=== PATIENT | female | born 1975 | race African-American/Black ===

== ENCOUNTER 2024-10-24 10:13 | Emergency (ER) | payer MEDICAID, SELFPAY ==
[2024-10-24 10:14] VITALS: BMI 29.9
--- NOTE | 2024-10-24 10:17 | EKG_ITS ---
[facility] Test Date: 2024-10-24 Pat Name: SELWYN PRATT Department: Room: - Gender: Female [employer]: : 1975 Requested By: ED Temporary Provider Order Number: [id number] Reading MD: ED Temporary Provider Measurements Intervals [place] Rate: 73 P: 64 MT: 161 QRS: 39 QRSD: 98 T: 41 QT: 382 QTc: 424 Interpretive Statements SINUS RHYTHM POSSIBLE LEFT ATRIAL ENLARGEMENT [-0.1mV P WAVE IN V1/V2] SEPTAL MYOCARDIAL INFARCTION , PROBABLY RECENT [40+ ms Q WAVE IN V1/V2] ACUTE SC Compared to ECG 04/20/2023 15:59:29 Myocardial infarct finding now present Sinus bradycardia no longer present Intraventricular conduction delay no longer present /store/S0/[id number].pdf
--- NOTE | 2024-10-24 10:43 | XR_ITS ---
Examination: PA lateral chest 2 views TECHNIQUE: Upright PA lateral chest 2 views Exam date and time: October 24, 2024 1052 hours Comparison October 19, 2021 INDICATIONS: Chest pain today. FINDINGS: Normal heart size Lungs are clear. The osseous structures are intact IMPRESSION: No active disease
--- NOTE | 2024-10-24 10:44 | PD.EDRME ---
Rapid Medical Screening Exam RME Arrival date/time: 10/24/24 10:13 49-year-old female with history of type 2 diabetes and cardiac stent presents emergency department today stating that she felt lightheaded with left arm pain today Chief Complaint: Chest Pain
[2024-10-24 10:53] VITALS: BP 104/71; PULSE 78; RESP 20; TEMP 36.4; O2SAT 100
[2024-10-24 11:25] LABS: Basophils # (Auto) 0.1 Thou/mm3 (0.0-0.2); Basophils % (Auto) 1 % (0-2.5); Eosinophils # (Auto) 0.3 Thou/mm3 (0.0-0.5); Eosinophils % (Auto) 4 % (0-10); Hematocrit 41.6 % (36.0-46.0); Hemoglobin 13.5 g/dL (12.0-16.0); Immature Granulocytes % (Auto) 0 % (0-0); Immature Granulocytes Auto 0.01 Thou/mm3 (0.00-0.00); Lymphocytes # (Auto) 3.5 Thou/mm3 (1.0-4.8); Lymphocytes % (Auto) 47 % (10-50); Mean Corpuscular HGB Conc 32.5 g/dl (31.0-37.0); Mean Corpuscular Hemoglobin 26.8 pg (25.0-35.0); Mean Corpuscular Volume 83 fL (80-100); Monocytes # (Auto) 0.5 Thou/mm3 (0.0-0.8); Monocytes % (Auto) 7 % (0-12); Neutrophils # (Auto) 3.1 Thou/mm3 (1.8-7.7); Neutrophils % (Auto) 42 % (37-80); Nucleated Red Blood Cell % 0 /100 WBC (0); Platelet Count 252 Thou/mm3 (140-440); RDW Standard Deviation 39.8 fL (36.4-46.3); Red Blood Count 5.03 Miln/mm3 (4.00-5.20); White Blood Count 7.4 Thou/mm3 (3.6-11.0)
[2024-10-24 11:34] LABS: Collection Type, Urine Clean Catch
[2024-10-24 11:46] LABS: B-Type Natriuretic Peptide < 20 pg/mL (0-100)
[2024-10-24 11:47] LABS: Bilirubin,Urine Negative (Negative); Blood,Urine Negative (Negative); Clarity,Urine Clear (Clear/Hazy); Color,Urine Yellow (Lt Yel-Yel); Glucose, Urine Negative (Negative); Ketones,Urine Negative (Negative); Leukocyte Esterase,Urine Negative (Negative); Nitrite,Urine Negative (Negative); Protein,Urine Negative (Neg - Trace); RBC,Urine 2 /hpf (0-3); Squamous Epithelial Cell,Urine 1 /hpf (0-5); Urobilinogen,Urine Negative mg/dL (0.0-1.0); WBC,Urine 1 /hpf (0-5)
[2024-10-24 11:49] LABS: Alanine Aminotransferase 12 U/L (10-49); Albumin, Serum 4.8 gm/dL (3.5-5.0); Albumin/Globulin Ratio 2.2 (1.2-2.2); Alkaline Phosphatase 103 U/L (46-116); Anion Gap 6 (7-16); Aspartate Amino Transferase 13 U/L (0-34); BUN/Creatinine Ratio 25 Ratio (12-20); Bilirubin,Total 0.5 mg/dL (0.3-1.2); Blood Urea Nitrogen 15 mg/dL (9-23); Calcium 9.7 mg/dL (8.3-10.6); Calcium (Corrected) 9.7 mg/dL (8.5-10.1); Carbon Dioxide 28.9 mMol/L (20.0-31.0); Chloride 106 mMol/L (98-107); Creatinine (Component) 0.6 mg/dL (0.6-1.3); Estimated Creatinine Clearance 117.1 mL/min (>60); Globulin 2.2 gm/dL (2.3-3.5); Glucose 91 mg/dL (74-106); Osmolality,Calculated 282 (275-295); Sodium 141 mMol/L (136-145); Troponin I < 0.020 ng/mL (0.0-0.045); eGFR > 60 See Note
[2024-10-24 11:50] LABS: Partial Thromboplastin Time 28.3 Seconds (22.0-36.0); Prothrombin Time 10.8 Seconds (9.0-12.2)
[2024-10-24 11:52] LABS: HCG Qualitative,Urine Negative
[2024-10-24 11:56] LABS: Alcohol, Urine Negative (Negative); Amphetamine/Methamp Scrn,U Positive (Negative); Barbiturate Screen,Urine Negative (Negative); Benzodiazepines Screen,Urine Negative (Negative); Benzoylecgonine Screen, Ur Negative (Negative); Fentanyl Screen,Urine Negative (Negative); Opiate Screen,Urine Negative (Negative); THC Screen,Urine Positive (Negative)
--- NOTE | 2024-10-24 17:49 | PC.NURSE ---
Patient called from the lobby by the hr specialist at 1703, NAx1.
--- NOTE | 2024-10-24 17:49 | PC.NURSE ---
Patient called from the lobby by the kindergartners helper for a second time at 1718, NAx2.
== END 2024-10-24 18:34 | disposition left against medical advice (07) ==
LOC: SERX 11:03
PROVIDERS: Nurse Practitioner Primary Care; Emergency Provider Emergency Medicine; PCP Family Medicine
DX: R42 Dizziness and giddiness (principal); M79.602 Pain in left arm; E11.9 Type 2 diabetes mellitus without complications
CPT/HCPCS: 36415; 71046; 80053; 80307; 80320; 81001; 81025; 83735; 83880; 84484; 85025; 85610; 85730; 93005; 99281; G0480

== ENCOUNTER → 2025-01-18 | Outpatient (CLI) | payer MEDICAID, SELFPAY ==
--- NOTE | 2025-01-18 14:45 | XR_ITS ---
Examination: Breast ultrasound, unilateral, left complete Date and time of exam: January 18, 2025 1501 hrs. Indications: Left breast pain beginning 2 weeks ago, family history, mother, breast cancer Technique: Real-time felton scale ultrasonographic imaging performed left breast including all 4 quadrants as well as nipple retroareolar and axillary region. Findings: No cystic or solid mass Impression: BI-RADS Category 0: Incomplete: Additional imaging evaluation Given the patient's presentation, recommend diagnostic mammography follow-up
--- NOTE | 2025-01-18 15:15 | XR_ITS ---
Examination: Diagnostic digital mammography, bilateral Computer aided detection 3-D breast Tomosynthesis, bilateral Date and time of exam: 01/18/2025, 3:12 PM Comparisons: 08/16/2020 Indications:Left breast pain Technique: Nonmagnified MLO, CC views of the breasts to been obtained, reconstructed from 3-D Tomosynthesis images. R2 computer aided detection program utilized for evaluation of suspicious masses and/or abnormal calcifications. 3-D Tomosynthesis images obtained. Findings: There are scattered areas of fibroglandular density. No evidence of abnormal masses or suspicious calcifications. Impression: BI-RADS category 1: Negative findings (within normal) Recommend 1 year follow-up mammogram
== END | disposition home or self-care (01) ==
DX: R92.313 Mammographic fatty tissue density, bilateral breasts (principal); R92.8 Other abnormal and inconclusive findings on diagnostic imaging of breast
CPT/HCPCS: 76641; 77062; 77066; G0279

== ENCOUNTER 2025-04-29 14:27 | Emergency (ER) | payer MEDICAID, SELFPAY ==
[2025-04-29 14:28] VITALS: BMI 29.6
[2025-04-29 14:38] VITALS: BP 105/60; PULSE 101; RESP 20; TEMP 36.9; O2SAT 96
--- NOTE | 2025-04-29 15:23 | EKG_ITS ---
[facility] Test Date: 2025-04-29 Pat Name: SELWYN PRATT Department: Room: - Gender: Female [employer]: : 1975 Requested By: Pineda Marks Order Number: [id number] Reading MD: Pineda Marks Measurements Intervals [place] Rate: 90 P: 55 WI: 147 QRS: 45 QRSD: 105 T: 46 QT: 351 QTc: 431 Interpretive Statements SINUS RHYTHM NONSPECIFIC T-WAVE ABNORMALITY Compared to ECG 10/24/2024 10:43:53 T-wave abnormality now present Supraventricular rhythm no longer present /store/S0/[id number]/ecg/[id number].pdf
--- NOTE | 2025-04-29 15:23 | XR_ITS ---
Examination: PA lateral chest 2 views Technique: Upright PA lateral chest 2 views Date and time: April 29, 2025, 1529 hrs. Indications: Onset chest pain today. Findings: Normal heart size. Lungs are clear. Osseous structures are intact. Impression: No active disease.
--- NOTE | 2025-04-29 15:24 | EDNOTE_ITS ---
ED Chest Pain RME/HPI General Chief Complaint: General Adult/Misc Complain Stated Complaint: MAJOR BURNING SENSATION DOWN R) LEG, DIZZINESS Time Seen by Provider: 04/29/25 15:17 Source: patient Arrival date/time: 04/29/25 14:27 49-year-old female with a history of type 2 diabetes presents to the emergency room with a chief complaint of a burning sensation down her right leg, dizziness, chest tightness x 2 days Mode of arrival: ambulatory Limitations: no limitations Related Data Home Medications ?Medication ?Instructions ?Recorded ?Confirmed metformin 500 mg tablet 500 mg PO DAILY 04/20/2309/02 Previous Rx's ?Medication ?Instructions ?Recorded meloxicam 7.5 mg tablet 7.5 mg PO QDAY #10 tabs 04/10 11/02 ondansetron 4 mg disintegrating 4 mg PO Q8H #14 tabs 0 04/20/23 tablet Allergies Allergy/AdvReac Type Severity Reaction Status Date / Time celecoxib Allergy Severe Rash Verified 04/29/25 14:31 Review of Systems Review of Systems Systems Reviewed: All systems reviewed, normal except as documented Constitutional Constitutional: Reports system reviewed and no additional complaints, except as documented, Denies fatigue, Denies fever(s), Denies headache(s) and Denies weakness Eyes Eyes: Reports system reviewed and no additional complaints, except as documented, Denies blurry vision and Denies change in vision ENT Ears, Nose, Mouth, and Throat: Reports system reviewed and no additional complaints, except as documented, Denies otalgia, Denies headache(s), Denies nasal congestion, Denies throat swelling and Denies vertigo Cardiovascular Cardiovascular: Reports system reviewed and no additional complaints, except as documented, Reports chest pain, Denies dyspnea and Denies dyspnea on exertion Respiratory Respiratory: Reports system reviewed and no additional complaints, except as documented, Denies chest congestion, Denies cough, Denies dyspnea, Denies dyspnea on exertion and Denies wheezing Gastrointestinal Gastrointestinal: Reports system reviewed and no additional complaints, except as documented, Denies abdominal pain, Denies cramping, Denies nausea and Denies vomiting Genitourinary Genitourinary: Reports system reviewed and no additional complaints, except as documented Musculoskeletal Musculoskeletal: Reports system reviewed and no additional complaints, except as documented and Reports back pain Integumentary/Breasts Skin/Breast: Reports system reviewed and no additional complaints, except as documented and Denies wounds Neurologic Neurologic: Reports system reviewed and no additional complaints, except as documented, Denies confusion, Denies headache(s), Denies lack of coordination, Denies vertigo and Denies weakness Psychiatric Psychiatric: Reports system reviewed and no additional complaints, except as documented, Denies anxiety, Denies confusion, Denies depression, Denies paranoia, Denies suicidal ideation and Denies tactile hallucinations Endocrine Endocrine: Reports system reviewed and no additional complaints, except as documented and Denies fatigue Hematologic/Lymphatic Hematologic/Lymphatic: Reports system reviewed and no additional complaints, except as documented and Denies lymphadenopathy Allergic/Immunologic Allergic/Immunologic: Reports system reviewed and no additional complaints, except as documented, Denies throat swelling, Denies urticaria and Denies wheezing Past Medical History Past Medical History CARDIAC: Positive Myocardial Infarction (stent), Hypercholesterolemia and Hypertension; Negative Congestive Heart Failure RESPIRATORY: Negative Chronic Obstructive Pulmonary Disease (COPD) GENITOURINARY: Negative Renal Disease MUSCULOSKELETAL: Positive Degenerative Disk Disease ENDOCRINE: Positive Diabetes Mellitus Type 2; Negative Diabetes Mellitus Type 1 PSYCHO/SOCIAL: Positive Bipolar Disorder and Anxiety Surgical History SURGICAL: Positive Coronary Stent, Cardiac Catheterization and Hysterectomy Social History SMOKING STATUS: Current every day smoker SUBSTANCE USE: does not use ED Exam General Limitations: Present no limitations General appearance: Present alert and in no apparent distress Head Head exam: Present atraumatic Eye Eye exam: Present normal appearance, PERRL and EOMI ENT ENT exam: Present normal exam, normal oropharynx and mucous membranes moist Neck Neck exam: Present normal inspection, full ROM and trachea midline Chest Chest inspection: Present normal inspection and symmetric chest wall rise Respiratory Respiratory exam: Present normal lung sounds bilaterally Cardiovascular Cardiovascular exam: Present regular rate, normal rhythm, normal heart sounds, +S1 and +S2; Absent bradycardia, tachycardia, irregular rhythm, systolic murmur, diastolic murmur, rubs, gallop, clicks or JVD Abdominal Exam Abdominal exam: Present soft and normal bowel sounds Extremities Exam Extremities exam: Present normal inspection and full ROM Back Exam Back exam: Present normal inspection, full ROM and sciatic notch tenderness (R) Neurological Exam Neurological exam: Present alert, oriented X3 and CN II-XII intact Psychiatric Psychiatric exam: Present normal affect and normal mood Skin Skin exam: Present warm, dry, intact and normal color Course Quality Measures none Orders Category Date Time Status EKG (ED ONLY) *Do not use* NOW Care 04/29/25 15:23 Completed EKG (ED Only) Stat Exams 04/29/25 15:23 Draft XR chest 2V Stat Exams 04/29/25 15:23 Completed B-Type Natriuretic Peptide Stat Lab 04/29/25 15:46 Completed CBC Stat Lab 04/29/25 15:46 Completed Comprehensive Metabolic Panel Stat Lab 04/29/25 15:46 Completed Troponin I Stat Lab 04/29/25 15:46 Completed HYDROcodone*/APAP 5/325 [Hayden 5/325] Med 04/29/25 15:24 Discontinued 1 tab PO X1 ONE Vital Signs Vital signs: Vital Signs Temperature 98.5 F 04/29/25 14:38 Pulse Rate 101 H 04/29/25 14:38 Respiratory Rate 20 04/29/25 14:38 Blood Pressure 105/60 04/29/25 14:38 Pulse Oximetry (%) 96 04/29/25 14:38 Oxygen Delivery Method Room Air 04/29/25 14:38 Chest Pain MDM Narrative MDM Narrative:: 49-year-old female with a history of type 2 diabetes presents to the emergency room with a chief complaint of a burning sensation down her right leg, dizziness, chest tightness x 2 days Patient is hemodynamically stable and in no apparent distress Physical examination shows strong and regular rhythm S1 and S2 noted. The patient has clear bilateral lung sounds no wheezing or abnormal breath sounds. Patient is also complaining of right-sided hip pain that radiates down her right leg. Both findings are consistent with sciatica. CBC CMP were within normal limits. Troponin was negative. EKG shows normal sinus rhythm at [address] deviation X-ray was negative for any pneumonic infiltrates Patient was discharged and educated to follow-up with primary care provider in the next 24 to 48 hours and return to the emergency room for any evidence of worsening signs or symptoms Patient data External records reviewed:: [facility] previous records Clinical information provided by:: patient Social determinants that could affect healthcare access:: none Patient has the following chronic illnesses:: Type 2 diabetes How is presenting disease/condition affected by chronic disease/condition?: no chronic disease Evaluation data The following diagnostics were reviewed and interpreted by me:: lab results and radiology exam(s) Lab and/or radiology exams considered but not ordered:: Labs and radiology exams considered and ordered Interpretation Summary: Chest [id number]: Normal heart size. Lungs are clear. Osseous structures are intact. Impression: No active disease. Medications / Prescriptions Medications or Prescriptions considered but not ordered:: No medication given Medication administrations:: Medication Administration History Discontinued Medications Hydrocodone Bitart/Acetaminophen (Hydrocodone/Apap 5/325 Tablet) 1 tab PO X1 ONE Stop: 04/29/25 15:25 Last Admin: 04/29/25 15:36 Dose: 1 tab Documented By: MF Medication given Consultations Consultation(s) initiated? (list below): No Diagnosis Chest Pain Differential Diagnosis: stable angina, unstable angina pectoris, atypical chest pain, st elevation myocardial infarction, costochondritis and chest pain Most likely diagnosis given after review of the tests above:: Chest pain Admission Indicated Admission indicated?: not indicated Admission Request Was there a request for admission?: No Disposition Plan Disposition Plan: Discharge Discharge Attestation Discharge Attestation: The patient and all family members were given an opportunity to ask questions and understood the discharge instructions. Discharge instructions specifically effects, indications for sooner follow up or return to the emergency department, and the expected course of current diagnosis. Patient condition: Stable Discharge Plan Plan Patient Disposition: HOME (Self Care) Discharge Disposition comment: Stable Prescriptions/Referrals Prescriptions/Med Rec: No Action metformin 500 mg tablet 500 mg PO DAILY Patient Comments: TAKE 1 TABLET BY MOUTH EVERY DAY WITH MEALS 30 meloxicam 7.5 mg tablet 7.5 mg PO QDAY Qty: 10 0RF ondansetron 4 mg tablet,disintegrating 4 mg PO Q8H Qty: 14 0RF Referrals: Costa Smith MD [Primary Care Provider] - In 1 week Problem List Clinical Impression: Chest pain, Sciatica Patient/Caregiver Discharge Instructions Education Materials: ED Chest Pain, Noncardiac, ED Sciatica Additional Instructions: Please follow-up with your primary care provider in the next 24 to 48 hours Your cardiac examination was within normal limits. Your blood work was within normal limits. Medication was sent to your pharmacy to help you with your sciatic pain For any evidence of worsening signs or symptoms return to emergency room immediately Print Language: Moroccan Stand Alone Forms: Carlie Award Info., Patient Portal Info Letter PA/JACINTO Supervising Physician GEMMA/JACINTO Supervising Physician: Dr. Herrmann
[2025-04-29] MEDS: HYDROcodone/APAP 5/325 TABLET 1 TAB PO (15:36)
[2025-04-29 16:00] LABS: Basophils # (Auto) 0.0 Thou/mm3 (0.0-0.2); Basophils % (Auto) 1 % (0-2.5); Eosinophils # (Auto) 0.2 Thou/mm3 (0.0-0.5); Eosinophils % (Auto) 3 % (0-10); Hematocrit 40.0 % (36.0-46.0); Hemoglobin 13.2 g/dL (12.0-16.0); Immature Granulocytes Auto 0.02 Thou/mm3 (0.00-0.00); Lymphocytes # (Auto) 2.2 Thou/mm3 (1.0-4.8); Lymphocytes % (Auto) 31 % (10-50); Mean Corpuscular HGB Conc 33.0 g/dl (31.0-37.0); Mean Corpuscular Hemoglobin 27.6 pg (25.0-35.0); Mean Corpuscular Volume 84 fL (80-100); Monocytes # (Auto) 0.5 Thou/mm3 (0.0-0.8); Monocytes % (Auto) 7 % (0-12); Neutrophils # (Auto) 4.2 Thou/mm3 (1.8-7.7); Neutrophils % (Auto) 58 % (37-80); Nucleated Red Blood Cell # 0.00 Thou/mm3 (0.00-0.00); Nucleated Red Blood Cell % 0 /100 WBC (0); Platelet Count 215 Thou/mm3 (140-440); RDW Standard Deviation 40.3 fL (36.4-46.3); Red Blood Count 4.78 Miln/mm3 (4.00-5.20); White Blood Count 7.2 Thou/mm3 (3.6-11.0)
[2025-04-29 16:22] LABS: B-Type Natriuretic Peptide < 20 pg/mL (0-100)
[2025-04-29 16:24] LABS: Alanine Aminotransferase 28 U/L (10-49); Albumin, Serum 4.3 gm/dL (3.5-5.0); Albumin/Globulin Ratio 1.9 (1.2-2.2); Alkaline Phosphatase 99 U/L (46-116); Anion Gap 10 (7-16); Aspartate Amino Transferase 22 U/L (0-34); BUN/Creatinine Ratio 21 Ratio (12-20); Bilirubin,Total 0.5 mg/dL (0.3-1.2); Blood Urea Nitrogen 15 mg/dL (9-23); Calcium 9.6 mg/dL (8.3-10.6); Calcium (Corrected) 9.6 mg/dL (8.5-10.1); Carbon Dioxide 30.5 mMol/L (20.0-31.0); Chloride 105 mMol/L (98-107); Creatinine (Component) 0.7 mg/dL (0.6-1.3); Estimated Creatinine Clearance 99.8 mL/min (>60); Globulin 2.3 gm/dL (2.3-3.5); Glucose 88 mg/dL (74-106); Osmolality,Calculated 288 (275-295); Potassium 4.1 mMol/L (3.4-5.1); Sodium 145 mMol/L (136-145); Total Protein 6.6 gm/dL (5.7-8.2); Troponin I < 0.020 ng/mL (0.0-0.045); eGFR > 60 See Note
== END 2025-04-29 16:55 | disposition home or self-care (01) ==
PROVIDERS: Nurse Practitioner Family; Emergency Provider Emergency Medicine; PCP Family Medicine
DX: R07.89 Other chest pain (principal); M54.31 Sciatica, right side; R94.31 Abnormal electrocardiogram [ECG] [EKG]
CPT/HCPCS: 36415; 71046; 80053; 83880; 84484; 85025; 93005; 99283; A9270